=== PATIENT | female | born 1965 | race Caucasian/White ===

== ENCOUNTER → 2017-04-22 | Outpatient (CLI) | payer OTHER ==
[~2017-04-22] MED LIST: ADVAIR HFA120 INHAL1 IH; ASPIRIN81 M2 PO; CALCI-CHEW500 MG PO; CARVEDILOL3.125 MG PO; CARVEDILOL6.25 MG PO; CHEWABLE-VITE1 EACH PO; CLOPIDOGREL75 MG PO; COPAXONE20 MG/KIT SC; COREG12.5 M1 PO; COREG3.125 M1 PO; DUONEB 2.5-0.5 M3 ML IH; EFFIENT10 MG PO; ELAVIL10 MG PO; ENTRESTO 24 MG1 EACH PO; FUROSEMIDE40 MG PO; GLIPIZIDE10 MG PO; HYDROCODON-ACE1 EAC7 PO; LANTUS 10100 UNITS/ SC; LANTUS 3 M100 UNITS1 SC; LEVOTHYROXINE50 MCG PO; LISINOPRIL-HCT1 EACH PO; METFORMIN HCL500 MG PO; METHYLPREDNISOLO4 M1 PO; METOCLOPRAMIDE H5 MG PO; MONTELUKAST SOD10 MG PO; NITROSTAT0.4 MG SL; PIOGLITAZONE-M1 EACH PO; PLAVIX75 MG PO; PRAVASTATIN SOD40 MG PO; PREDNISONE20 MG PO; PROAIR HFA8.5 GM IH; PROVENTIL,2.5 MG/3 M IH; REGLAN10 MG PO; REGLAN5 MG PO; SIMBRINZA 1%-0.28 ML BOTH EYES; SINGULAIR10 MG PO; SPIRONOLACTONE25 MG PO; VICTOZA0.6 MG/0.1 SC; VITAMIN D2000 INTUN PO; XALATAN2.5 ML BOTH EYES; ZANTAC150 MG PO; ZESTORETIC 20-1 EAC1 NG; ZOFRAN4 MG PO
== END | disposition home or self-care (01) ==
LOC: AMB 07:30
DX: L98.499 Non-pressure chronic ulcer of skin of other sites with unspecified severity (principal); W57.XXXA Bitten or stung by nonvenomous insect and other nonvenomous arthropods, initial encounter
CPT/HCPCS: 88305